=== PATIENT | female | born 1980 | race American Indian/Alaskan Native ===

== ENCOUNTER 2016-10-08 02:53 | Inpatient (IN) | payer BC ==
[2016-10-08 03:41] LABS: Hematocrit 38 % (35-47); Hemoglobin 12.9 g/dl (12.0-16.0); Mean Corpuscular HGB Conc 34 g/dl (31-36); Mean Corpuscular Hemoglobin 29 pg (27-31); Mean Corpuscular Volume 85 fL (80-97); Mean Platelet Volume 10 um3 (7.4-10.4); Red Blood Count 4.47 10^6/ul (4.0-5.4); Red Cell Distribution Width 13 % (10.5-15); White Blood Count 15.7 10^3/ul (3.5-10.8)
[2016-10-08 03:45] LABS: Add Diff/Slide Review? Slide Review Added; Comments Flag Yes
[2016-10-08 04:32] LABS: Albumin 3.2 g/dL (3.2-5.2); BUN/Creatinine Ratio 14.9 (8-20); Calcium 8.7 mg/dL (8.6-10.3); EGFR African American 70.2 (>60); EGFR Non-African American 54.6 (>60); Globulin 2.6 g/dL (2-4); Potassium 4.1 mmol/L (3.5-5.0); Total Bilirubin 0.3 mg/dL (0.2-1.0); Total Protein 5.8 g/dL (6.4-8.9); Uric Acid 10.1 mg/dL (2.3-6.6)
[2016-10-08] MEDS ORDERED: Promethazine TAB* 25 MG PO ONE (04:57)
[2016-10-08] MEDS ORDERED: Nalbuphine* 20 MG/ML 1 ML VIAL IV ONE (05:00)
[2016-10-08] MEDS ORDERED: Nalbuphine* 20 MG/ML 1 ML VIAL ONE (05:04)
[2016-10-08] MEDS ORDERED: Promethazine TAB* 25 MG ONE (05:05)
[2016-10-08] MEDS ORDERED: OBEPIDURAL* 250 ML ONE (09:48)
[2016-10-08] MEDS ORDERED: Sodium Citrate/Citric Acid* 15 ML UDC PO PRN (10:53)
[2016-10-08] MEDS ORDERED: Phenylephrine IV* 40 MCG/ML 10 ML SYRINGE IV PUSH PRN ×2 (10:53)
[2016-10-08] MEDS ORDERED: OBEPIDURAL* 250 ML EPIDURAL SCH (11:00)
[2016-10-08] MEDS ORDERED: Oxytocin in LR* 0 UNITS/0 ML BAG IVPB ONE (18:56)
[2016-10-08] MEDS ORDERED: Glycerin ADULT SUPP PR PRN (20:49)
[2016-10-08] MEDS ORDERED: Acetaminophen TAB* 325 MG PO PRN (20:49)
[2016-10-08] MEDS ORDERED: Simethicone CHEW TAB* 80 MG PO SCH (21:00)
[2016-10-08] MEDS: Docusate CAP* 100 MG PO SCH (21:53)
[2016-10-08] MEDS: Ibuprofen TAB* 600 MG PO PRN (21:53)
[2016-10-08] MEDS: Witch Hazel PAD* JAR TOPICAL PRN (21:53)
[2016-10-08] MEDS: Dibucaine 1% 28.35 GM TUBE PR PRN (21:54)
[2016-10-09] MEDS: Ibuprofen TAB* 600 MG PO PRN ×4 (05:17→23:55)
[2016-10-09 07:25] LABS: Hematocrit 34 % (35-47); Hemoglobin 11.6 g/dl (12.0-16.0); Mean Corpuscular HGB Conc 34 g/dl (31-36); Mean Corpuscular Hemoglobin 29 pg (27-31); Mean Corpuscular Volume 85 fL (80-97); Mean Platelet Volume 10 um3 (7.4-10.4); Red Blood Count 3.96 10^6/ul (4.0-5.4); Red Cell Distribution Width 13 % (10.5-15); White Blood Count 23.8 10^3/ul (3.5-10.8)
[2016-10-09] MEDS ORDERED: Ferrous Gluconate TAB* 324 MG TAB PO SCH (09:00)
[2016-10-09] MEDS: Docusate CAP* 100 MG PO SCH ×2 (09:09→21:08)
[2016-10-09] MEDS: oxyCODONE/Acetamin 5/325 MG* TAB PO PRN ×2 (11:47→17:27)
[2016-10-09] MEDS ORDERED: Labetalol TAB* 200 MG ONE (12:28)
--- NOTE | 2016-10-09 12:39 | PN ---
Progress Note - Progress Note SOAP: Subjective: Paged by RN for elevated BP 185/103 Pt denies DOZIER. No visual changes. No RUQ pain. Some cramping discomfort with nursing but coping. Family and visitors at bedside. In labor pt had a uric acid of 10.1 and an elevated creatinine of 1.14. AST/ALT/ BUN WNL. Platelets in labor 148 (105 ) [] Objective: []BP 185/103 (overnight running 140s/80-90's) T 97.8 HR 62 Breasts: Soft, atraumatic Abd: FF U down 1, non-tender. Moderate rubra flow. Negative RUQ pain to palpation. Negative CVAT Perineum: Mild edema, scant bruising, suture intact Assessment: []Elevated BP suspect related to mild pre-eclampsia in labor Plan: []Pt given Percocet x 1 and plan to re-check BP in 30 minutes. 30 minute repeat of BP 186/99. In consultation with Dr. Beaver plan 200mg Labetalol PO and re-check BP 30 min after administration. RN to page CNM with repeat BP.
[2016-10-09] MEDS ORDERED: Labetalol TAB* 200 MG PO ONE (13:00)
[2016-10-10] MEDS: Docusate CAP* 100 MG PO SCH ×3 (02:24→14:39)
[2016-10-10] MEDS: Ibuprofen TAB* 600 MG PO PRN ×3 (06:14→17:46)
[2016-10-10] MEDS: oxyCODONE/Acetamin 5/325 MG* TAB PO PRN ×2 (06:15→18:10)
[2016-10-10 08:14] VITALS: BP 137/86
[2016-10-10] MEDS: Dibucaine 1% 28.35 GM TUBE PR PRN (08:51)
[2016-10-10] MEDS ORDERED: Labetalol TAB* 200 MG PO SCH (09:00)
[2016-10-10] MEDS: Witch Hazel PAD* JAR TOPICAL PRN (18:16)
== END 2016-10-10 18:55 | disposition home or self-care (01) | DRG 542 ==
LOC: MCHOBOUT 02:53 → MCHOB 03:14
PROVIDERS: ADMIT Midwife; ATTEND Midwife
PROC: 10E0XZZ Delivery of Products of Conception, External Approach (ICD-10-PCS; principal; 2016-10-08)
PROC: 0DQR0ZZ Repair Anal Sphincter, Open Approach (ICD-10-PCS; 2016-10-08)
DX: O99.824 Streptococcus B carrier state complicating childbirth (principal); F32.9 Major depressive disorder, single episode, unspecified; O14.04 Mild to moderate pre-eclampsia, complicating childbirth; O70.20 Third degree perineal laceration during delivery, unspecified; O99.344 Other mental disorders complicating childbirth; Z3A.39 39 weeks gestation of pregnancy; Z37.0 Single live birth
CPT/HCPCS: 36415; 80053; 84550; 85025; 86850; 86900; 86901; A9270-GY; J2300

== ENCOUNTER 2016-10-17 12:47 | Emergency (ER) | payer BC ==
[2016-10-17 15:26] VITALS: BP 139/89
--- NOTE | 2016-10-17 15:30 | ED ---
Hieu Crockett Alok, scribed for Rosy Santos MD on 10/17/16 at 1349 . GI/ HPI - HPI Summary HPI Summary: 36F presents to the ED with hemorrhoidal pain. Pt is 1 week post GPA = 1 , 1, 0. Pt had a vaginal delivery. Pt has been taking 800 mg ibuprofen and 3 g Tylenol to manage pain, last taken three hours ago. PMHx includes post HTN. Pt drinks ETOH occasionally. - History of Current Complaint Chief Complaint: EDGeneral Stated Complaint: HEMORRHIOD PAIN Hx Obtained From: Patient Onset/Duration: Atraumatic, Still Present Timing: Constant Severity: Moderate Current Severity: Moderate Pain Intensity: 4 Associated Signs and Symptoms: Positive: Negative Aggravating Factor(s): Nothing Alleviating Factor(s): OTC Analgesics - tylenol, ibuprofen - Allergy/Home Medications Allergies/Adverse Reactions: Allergies Allergy/AdvReac Type Severity Reaction Status Date / Time Prednisone Allergy Severe Altered Verified 04/17/14 12:22 Mental Status PMH/Surg Hx/FS Hx/Imm Hx Cardiovascular History: Denies: Hx Hypertension, Hx Pacemaker/ICD Sensory History: Denies: Hx Hearing Aid Psychiatric History: Reports: Hx Anxiety, Hx Depression Denies: Hx Panic Disorder Infectious Disease History: No Infectious Disease History: Denies: Traveled Outside the [place] in Last 30 Days - Family History Known Family History: Positive: Cardiac Disease - Social History Occupation: Employed Full-time Lives: With Family Alcohol Use: None Substance Use Type: Reports: None Smoking Status (MU): Never Smoked Tobacco Review of Systems Negative: Fever Positive: Other - hemorrhoid All Other Systems Reviewed And Are Negative: Yes Physical Exam Triage Information Reviewed: Yes Vital Signs On Initial Exam: Initial Vitals Temp Pulse Resp BP Pulse Ox 98.5 F 81 20 153/104 99 10/17/16 13:00 10/17/16 13:00 10/17/16 13:00 10/17/16 13:00 10/17/16 13:00 Vital Signs Reviewed: Yes Appearance: Positive: Well-Appearing, No Pain Distress Skin: Positive: Warm, Skin Color Reflects Adequate Perfusion, Dry, Other - 2 cm hemorrhoid mostly pinkish with one bluish spot Eyes: Positive: EOMI, MELECIO ENT: Positive: Pharynx normal, TMs normal Neck: Positive: Supple, Nontender Respiratory/Lung Sounds: Positive: Clear to Auscultation, Breath Sounds Present. Negative: Rales, Rhonchi, Wheezes Cardiovascular: Positive: RRR, Other - No Gallop. Negative: Murmur, Rub Abdomen Description: Positive: Nontender, Soft, Other: - No rebound. Negative: Distended, Guarding Bowel Sounds: Positive: Present Musculoskeletal: Positive: Strength/ROM Intact. Negative: Edema Left, Edema Right Neurological: Positive: Sensory/Motor Intact, Alert, Oriented to Person Place, Time, CN Intact II-III Psychiatric: Positive: Affect/Mood Appropriate Procedures - Incision and Drainage Site: Slight thrombus incision Anesthesia: Topical Instrument(s): Scalpel Diagnostics - Vital Signs Vital Signs Temp Pulse Resp BP Pulse Ox 10/17/16 13:03 97.1 F 73 20 153/104 100 10/17/16 13:00 98.5 F 81 20 153/104 99 - Laboratory Lab Statement: Any lab studies that have been ordered have been reviewed, and results considered in the medical decision making process. GIGU Course/Dx - Course Course Of Treatment: very pleasant 36yo female 1 week post with painful thrombosed hemorrhoid. Area anesthesized with marcaine and very small incision made over thrombosed area to relieve some pressure. lidocaine jelly prescribed and pt will folowup with surgery - Diagnoses Provider Diagnoses: Thrombosed external hemorrhoid Discharge - Discharge Plan Condition: Stable Disposition: HOME Prescriptions: Lidocaine 2% JELLY* 1 applic TOPICAL TID PRN #1 tube PRN Reason: Pain Patient Education Materials: Thrombosed Hemorrhoid (ED) Referrals: Viktor Donovan CURRICULUM DEVELOPMENT SPECIALIST [Primary Care Provider] - Abundio Morgan MD [Medical Doctor] - Additional Instructions: Please follow up with Dr. Morgan for surgery The documentation as recorded by the Hieu mancilla Alok accurately reflects the service I personally performed and the decisions made by me, Rosy Santos MD.
== END 2016-10-17 15:23 | disposition home or self-care (01) ==
LOC: ED 12:47
DX: K64.5 Perianal venous thrombosis (principal)
CPT/HCPCS: 10060; 99282

== ENCOUNTER 2017-01-25 14:58 | Emergency (ER) | payer BC ==
[2017-01-25] MEDS ORDERED: NS 0.9% 1000 ML* 2,000 ML IV ONE (15:28)
[2017-01-25 15:49] LABS: Hematocrit 41 % (35-47); Hemoglobin 13.9 g/dl (12.0-16.0); Mean Corpuscular HGB Conc 34 g/dl (31-36); Mean Corpuscular Hemoglobin 29 pg (27-31); Mean Corpuscular Volume 84 fL (80-97); Mean Platelet Volume 8 um3 (7.4-10.4); Red Blood Count 4.88 10^6/ul (4.0-5.4); Red Cell Distribution Width 12 % (10.5-15); White Blood Count 6.1 10^3/ul (3.5-10.8)
[2017-01-25 15:50] LABS: Comments Flag Yes
[2017-01-25 16:05] LABS: Albumin 4.3 g/dL (3.2-5.2); BUN/Creatinine Ratio 8.3 (8-20); C Reactive Protein 1.53 mg/L (< 5.00); Calcium 9.5 mg/dL (8.6-10.3); EGFR African American 74.7 (>60); EGFR Non-African American 58.1 (>60); Globulin 2.8 g/dL (2-4); Potassium 3.6 mmol/L (3.5-5.0); Total Bilirubin 0.5 mg/dL (0.2-1.0); Total Protein 7.1 g/dL (6.4-8.9)
--- NOTE | 2017-01-25 16:13 | ED ---
Bayron Crockett Rebecca, scribed for Jus Schuler MD on 01/25/17 at 1522 . Abdominal Pain/Female - HPI Summary HPI Summary: Pt is a 36 y/o F who presents to ED c/o abd pain. 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 Pain is diffuse and currently mild, ranked 3/ 10. Sx aggravated and alleviated by nothing. She additionally c/o N/V/D and dizziness. notes one episode of vomiting 1.5 weeks aog that lasted for ~12 hours and resolved spontaneously. Pt cites vomiting 3 nights ago, 3-4 hours after eating scallops and has been unable to tolerate PO intake since then. Currently, nausea is mild. Last episode of diarrhea was at about 11 or 1130 today, described as dark but not black. Denies fever, chills, cough, back pain and edema. No recent sick contact. She is concerned about dehydration and is currently breast feeding. - History of Current Complaint Chief Complaint: EDNauseaVomitDiarrh Stated Complaint: VOMITING Time Seen by Provider: 01/25/17 15:12 Hx Obtained From: Patient Hx Last Menstrual Period: 3 weeks ago Onset/Duration: Lasting Hours, Still Present Timing: Constant Severity Currently: Mild Pain Intensity: 3 Pain Scale Used: 0-10 Numeric Location: Diffuse Character: Dull Aggravating Factor(s): Nothing Alleviating Factor(s): Nothing Associated Signs and Symptoms: Positive: Dizzy, Nausea, Vomiting, Diarrhea. Negative: Fever Allergies/Adverse Reactions: Allergies Allergy/AdvReac Type Severity Reaction Status Date / Time Prednisone Allergy Severe Altered Verified 04/17/14 12:22 Mental Status PMH/Surg Hx/FS Hx/Imm Hx Cardiovascular History: Denies: Hx Hypertension, Hx Pacemaker/ICD Sensory History: Denies: Hx Hearing Aid Psychiatric History: Reports: Hx Anxiety, Hx Depression Denies: Hx Panic Disorder Infectious Disease History: No Infectious Disease History: Denies: Traveled Outside the [place] in Last 30 Days - Family History Known Family History: Positive: Cardiac Disease - Social History Alcohol Use: None Substance Use Type: Reports: None Smoking Status (MU): Never Smoked Tobacco Review of Systems Negative: Fever, Chills Negative: Cough Positive: Abdominal Pain - mild, Vomiting, Diarrhea, Nausea Positive: Other - NEGATIVE: back pain. Negative: Edema Neurological: Other - Dizziness All Other Systems Reviewed And Are Negative: Yes Physical Exam - Summary Physical Exam Summary: The patient is well-nourished in no acute distress and in no acute pain. The skin is warm and dry and skin color reflects adequate perfusion. She is nontoxic appearing. HEENT: The head is normocephalic and atraumatic. The pupils are equal and reactive. The conjunctivae are clear and without drainage. Nares are patent and without drainage. Mouth reveals moist mucous membranes and the throat is without erythema and exudate. The external ears are intact. The ear canals are patent and without drainage. The tympanic membranes are intact. Neck is supple with full range of motion and non-tender. There are no carotid bruits. There is no neck vein distension. Respiratory: Chest is non-tender. Lungs are clear to auscultation and breath sounds are symmetrical and equal. Cardiovascular: Hear is regular rate and rhythm. There is no murmur or rub auscultated. Pulses are symmetrical and equal. Abdomen: The abdomen is soft with some epigastric and RUQ pain. She exhibits no guarding and no rebound. There are normal bowel sounds heard in all four quadrants and there is no organomegaly palpated. Musculoskeletal: There is no back pain noted. Extremities are non-tender with full range of motion. There is good capillary refill and good skin turgor. Neurological: Patient is alert and oriented to person, place and time. Psychiatric: The patient has an appropriate affect and does not exhibit any anxiety or depression. Triage Information Reviewed: Yes Vital Signs On Initial Exam: Initial Vitals Temp Pulse Resp BP Pulse Ox 98.1 F 76 17 137/94 100 01/25/17 15:03 01/25/17 15:03 01/25/17 15:03 01/25/17 15:03 01/25/17 15:03 Vital Signs Reviewed: Yes Diagnostics - Vital Signs Vital Signs Temp Pulse Resp BP Pulse Ox 01/25/17 15:03 98.1 F 76 17 137/94 100 - Laboratory Lab Results: Lab Results 01/25/17 01/25/17 01/25/17 Range/Units 15:35 15:35 15:35 WBC 6.1 (3.5-10.8) 10^3/ul RBC 4.88 (4.0-5.4) 10^6/ul Hgb 13.9 (12.0-16.0) g/dl Hct 41 (35-47) % MCV 84 (80-97) fL MCH 29 (27-31) pg MCHC 34 (31-36) g/dl RDW 12 (10.5-15) % Plt Count 211 (150-450) 10^3/ul MPV 8 (7.4-10.4) um3 Neut % (Auto) 56.6 (38-83) % Lymph % (Auto) 30.2 (25-47) % [place] % (Auto) 11.7 H (1-9) % Eos % (Auto) 1.2 (0-6) % Baso % (Auto) 0.3 (0-2) % Absolute Neuts (auto) 3.4 (1.5-7.7) 10^3/ul Absolute Lymphs (auto) 1.8 (1.0-4.8) 10^3/ul Absolute Monos (auto) 0.7 (0-0.8) 10^3/ul Absolute Eos (auto) 0.1 (0-0.6) 10^3/ul Absolute Basos (auto) 0 (0-0.2) 10^3/ul Absolute Nucleated RBC 0.01 10^3/ul Nucleated RBC % 0.2 Sodium 137 (133-145) mmol/L Potassium 3.6 (3.5-5.0) mmol/L Chloride 106 (101-111) mmol/L Carbon Dioxide 24 (22-32) mmol/L Anion Gap 7 (2-11) mmol/L BUN 9 (6-24) mg/dL Creatinine 1.08 H (0.51-0.95) mg/dL Est GFR ( Amer) 74.7 (>60) Est GFR (Non-Af Amer) 58.1 (>60) BUN/Creatinine Ratio 8.3 (8-20) Glucose 77 (70-100) mg/dL Lactic Acid 0.6 (0.5-2.0) mmol/L Calcium 9.5 (8.6-10.3) mg/dL Total Bilirubin 0.50 (0.2-1.0) mg/dL AST 15 (13-39) U/L ALT 11 (7-52) U/L Alkaline Phosphatase 76 (34-104) U/L C-Reactive Protein 1.53 (< 5.00) mg/L Total Protein 7.1 (6.4-8.9) g/dL Albumin 4.3 (3.2-5.2) g/dL Globulin 2.8 (2-4) g/dL Albumin/Globulin Ratio 1.5 (1-3) Amylase 50 (29-103) U/L Lipase 13 (11.0-82.0) U/L Result Diagrams: 01/25/17 15:35 01/25/17 15:35 Lab Statement: Any lab studies that have been ordered have been reviewed, and results considered in the medical decision making process. Abdominal Pain Fem Course/Dx - Course Course Of Treatment: Pt is a 36 y/o F who presents to ED c/o abd pain. 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 Pain is diffuse and currently mild, ranked 3/10. Sx aggravated and alleviated by nothing. She additionally c/o N/V/D and dizziness. notes one episode of vomiting 1.5 weeks aog that lasted for ~12 hours and resolved spontaneously. Pt cites vomiting 3 nights ago, 3-4 hours after eating scallops and has been unable to tolerate PO intake since then. Currently, nausea is mild. Last episode of diarrhea was at about 11 or 1130 today, described as dark but not black. Denies fever, chills, cough, back pain and edema. No recent sick contact. She is concerned about dehydration and is currently breast feeding. Pt marleny signed out, pending disposition, awaiting stool culture. - Diagnoses Differential Diagnosis: Positive: Gall Bladder Disease, Other - dehydration. enteritis, gastritis Provider Diagnoses: Dehydration Discharge - Discharge Plan Condition: Stable Disposition: OTHER Discharge Disposition Comment: Pt will be signed out, pending disposition, awaiting stool culture Referrals: Viktor Donovan, EVALUATION ENGINEER [Primary Care Provider] - The documentation as recorded by the Bayron mancilla Rebecca accurately reflects the service I personally performed and the decisions made by me, Jus Schuler MD.
[2017-01-25 18:33] VITALS: BP 132/90
== END 2017-01-25 18:31 | disposition home or self-care (01) ==
LOC: ED 14:58
DX: R10.9 Unspecified abdominal pain (principal); R42 Dizziness and giddiness; R11.2 Nausea with vomiting, unspecified; R19.7 Diarrhea, unspecified; E86.0 Dehydration
CPT/HCPCS: 36415; 80053; 82150; 83605; 83690; 85025; 86140; 96360; 99282

== ENCOUNTER 2017-01-27 08:08 | Emergency (ER) | payer BC ==
[2017-01-27] MEDS ORDERED: Ondansetron INJ* 2 MG/ML VIAL IV ONE (09:28)
[2017-01-27] MEDS ORDERED: Morphine INJ* 4 MG/ML 1 ML CARPUJECT IV ONE (09:28)
[2017-01-27] MEDS ORDERED: NS 0.9% 1000 ML* 2,000 ML IV ONE (09:57)
[2017-01-27 10:02] LABS: Hematocrit 42 % (35-47); Hemoglobin 14.2 g/dl (12.0-16.0); Mean Corpuscular HGB Conc 34 g/dl (31-36); Mean Corpuscular Hemoglobin 29 pg (27-31); Mean Corpuscular Volume 84 fL (80-97); Mean Platelet Volume 8 um3 (7.4-10.4); Red Blood Count 4.97 10^6/ul (4.0-5.4); Red Cell Distribution Width 12 % (10.5-15); White Blood Count 5.7 10^3/ul (3.5-10.8)
[2017-01-27 10:24] LABS: ALT 12 U/L (7-52); Albumin 4.9 g/dL (3.2-5.2); Alkaline Phosphatase 72 U/L (34-104); Anion Gap 4 mmol/L (2-11); BUN/Creatinine Ratio 8.3 (8-20); Blood Urea Nitrogen 9 mg/dL (6-24); C Reactive Protein < 1.00 mg/L (< 5.00); CO2 Carbon Dioxide 27 mmol/L (22-32); Calcium 9.3 mg/dL (8.6-10.3); Chloride 108 mmol/L (101-111); EGFR African American 74.7 (>60); EGFR Non-African American 58.1 (>60); Glucose 101 mg/dL (70-100); Lipase 16 U/L (11.0-82.0); Potassium 3.8 mmol/L (3.5-5.0); Sodium 139 mmol/L (133-145); Total Protein 6.9 g/dL (6.4-8.9)
[2017-01-27 10:35] LABS: Urine Bacteria Absent (Absent); Urine Bilirubin Negative (Negative); Urine Glucose Negative (Negative); Urine Nitrite Negative (Negative)
[2017-01-27] MEDS ORDERED: Iodixanol* (CONTRAST) 320 MG/ML 100 ML SDV IV ONE (10:47)
[2017-01-27 11:23] LABS: AST 16 U/L (13-39)
--- NOTE | 2017-01-27 12:35 | RAD ---
CLINICAL HISTORY: Severe diarrhea, left upper quadrant pain, left lower quadrant pain COMPARISON: None TECHNIQUE: Multiple contiguous axial CT scans were obtained of the abdomen and pelvis after the administration of intravenous contrast. Coronal and sagittal multiplanar reformations are submitted for review. Oral contrast was administered. Delayed images were obtained through the abdomen and pelvis. FINDINGS: LUNG BASES: The lung bases are clear. LIVER: There is a low-attenuation lesion of the right lobe of liver that is too small to definitively characterize measuring 0.5 cm in size, but most likely represents a small cyst versus hemangioma. The liver measures up to 18.7 cm in long axis. BILE DUCTS: There is no intrahepatic or extrahepatic biliary dilatation. GALLBLADDER: The gallbladder is normal, without pericholecystic inflammatory change. PANCREAS: The pancreas is normal, without mass or ductal dilatation. SPLEEN: The spleen measures up to 13.3 cm in long axis. UPPER GI TRACT: Evaluation of the gastrointestinal tract is limited by incomplete gastric distention. The upper GI tract is unremarkable. SMALL BOWEL AND MESENTERY: The small bowel is normal in contour, course, and caliber. There is no obstruction or dilatation. COLON: The colon is normal in contour, course, caliber. There is no pericolonic inflammatory change. ADRENALS: Normal bilaterally. KIDNEYS: The kidneys are normal in shape, size, contour, and axis. There is no hydronephrosis or nephrolithiasis. BLADDER: The bladder is smooth in contour. PELVIC ORGANS: The uterus and adnexa are grossly normal for technique. AORTA: The aorta is normal. IVC: Unremarkable LYMPH NODES: There is no lymphadenopathy by size criteria. ABDOMINAL WALL: There is no evidence for abdominal wall hernia. BONES AND SOFT TISSUES: Unremarkable OTHER: There is a small amount of free fluid within the pelvis. This may be physiologic within a reproductive age female. IMPRESSION: 1. BORDERLINE HEPATOSPLENOMEGALY. 2. NO OBSTRUCTION. 3. SMALL AMOUNT OF FREE FLUID WITHIN THE PELVIS. THIS MAY BE PHYSIOLOGIC WITHIN A REPRODUCTIVE AGE FEMALE.
[2017-01-27 14:23] VITALS: BP 116/71
--- NOTE | 2017-01-27 19:13 | ED ---
Sherry Crockett SooYoung, scribed for Jus Schuler MD on 01/27/17 at 0922 . GI/ HPI - HPI Summary HPI Summary: A 36 y/o F presents to ED with c/o diffuse abd pain described as cramping ongoing for five days, and worsening last night. Associated sx: nausea, diarrhea , unable to eat or drink due to the nausea/diarrhea. Denies fever, chills, melena; and back pain is per baseline. Last seen in ED two days ago for similar n/v/d. Pt states she's lost 8 lbs over past five days. Prev episodes of vomiting for 12 hours last week. Pt is and breast-feeding. Denies recent travel. - History of Current Complaint Chief Complaint: EDNauseaVomitDiarrh Time Seen by Provider: 01/27/17 09:13 Stated Complaint: DIARRHEA Hx Obtained From: Patient, Family/Instrumentation Manager - present Hx Last Menstrual Period: 3 weeks ago Onset/Duration: Started Days Ago, Still Present Timing: Constant Severity: Moderate Current Severity: Moderate Pain Intensity: 3 - out of 10 Location of Pain: Diffuse Associated Signs and Symptoms: Positive: Nausea, Diarrhea, Other: - decreased oral intake. Negative: Blood-Streaked Stool, Bright Red Blood w/Stool, Blood w/ Stool, Fever, Chills - Allergy/Home Medications Allergies/Adverse Reactions: Allergies Allergy/AdvReac Type Severity Reaction Status Date / Time Prednisone Allergy Severe Altered Verified 01/27/17 08:14 Mental Status PMH/Surg Hx/FS Hx/Imm Hx Previously Healthy: Yes Cardiovascular History: Denies: Hx Hypertension, Hx Pacemaker/ICD Sensory History: Denies: Hx Legally Blind, Hx Hearing Aid Opthamlomology History: Denies: Hx Legally Blind Psychiatric History: Reports: Hx Anxiety, Hx Depression Denies: Hx Panic Disorder Infectious Disease History: Denies: Traveled Outside the [place] in Last 30 Days - Family History Known Family History: Positive: Cardiac Disease - Social History Occupation: Employed Full-time Lives: With Family Alcohol Use: None Hx Substance Use: No Substance Use Type: Reports: None Hx Tobacco Use: No Smoking Status (MU): Never Smoked Tobacco Review of Systems Negative: Fever, Chills Positive: Abdominal Pain, Diarrhea, Nausea. Negative: Other - pos: decreased oral intake; neg: melena All Other Systems Reviewed And Are Negative: Yes Physical Exam - Summary Physical Exam Summary: The patient is well-nourished in no acute distress and in no acute pain. The skin is warm and dry and skin color reflects adequate perfusion. HEENT: The head is normocephalic and atraumatic. The pupils are equal and reactive. The conjunctivae are clear and without drainage. Nares are patent and without drainage. Mouth reveals dry mucous membranes and the throat is without erythema and exudate. The external ears are intact. The ear canals are patent and without drainage. The tympanic membranes are intact. Neck is supple with full range of motion and non-tender. There are no carotid bruits. There is no neck vein distension. Respiratory: Chest is non-tender. Lungs are clear to auscultation and breath sounds are symmetrical and equal. Cardiovascular: Heart is regular rate and rhythm. There is no murmur or rub auscultated. There is no peripheral edema and pulses are symmetrical and equal. Abdomen: The abdomen has tenderness at LLQ and LUQ. There is no CVA tenderness. There are normal bowel sounds heard in all four quadrants and there is no organomegaly palpated. Musculoskeletal: There is no back pain noted. Extremities are non-tender with full range of motion. There is good capillary refill. There is no peripheral edema or calf tenderness elicited. Neurological: Patient is alert and oriented to person, place and time. The patient has symmetrical motor strength in all four extremities. Cranial nerves are grossly intact. Deep tendon reflexes are symmetrical and equal in all four extremities. Psychiatric: The patient has an appropriate affect and does not exhibit any anxiety or depression. Triage Information Reviewed: Yes Vital Signs On Initial Exam: Initial Vitals Temp Pulse Resp BP Pulse Ox 98.1 F 68 20 122/83 100 01/27/17 08:09 01/27/17 08:09 01/27/17 08:09 01/27/17 08:09 01/27/17 08:09 Vital Signs Reviewed: Yes Diagnostics - Vital Signs Vital Signs Temp Pulse Resp BP Pulse Ox 01/27/17 09:02 98.8 F 73 15 122/83 99 01/27/17 08:09 98.1 F 68 20 122/83 100 - Laboratory Lab Results: Lab Results 09/14/17 09/14/17 09/14/17 Range/Units 09:30 09:30 09:30 WBC 5.7 (3.5-10.8) 10^3/ul RBC 4.97 (4.0-5.4) 10^6/ul Hgb 14.2 (12.0-16.0) g/dl Hct 42 (35-47) % MCV 84 (80-97) fL MCH 29 (27-31) pg MCHC 34 (31-36) g/dl RDW 12 (10.5-15) % Plt Count 197 (150-450) 10^3/ul MPV 8 (7.4-10.4) um3 Neut % (Auto) 62.6 (38-83) % Lymph % (Auto) 27.1 (25-47) % Petroleum % (Auto) 8.6 (1-9) % Eos % (Auto) 1.0 (0-6) % Baso % (Auto) 0.7 (0-2) % Absolute Neuts (auto) 3.6 (1.5-7.7) 10^3/ul Absolute Lymphs (auto) 1.6 (1.0-4.8) 10^3/ul Absolute Monos (auto) 0.5 (0-0.8) 10^3/ul Absolute Eos (auto) 0.1 (0-0.6) 10^3/ul Absolute Basos (auto) 0 (0-0.2) 10^3/ul Absolute Nucleated RBC 0.01 10^3/ul Nucleated RBC % 0.1 Sodium 139 (133-145) mmol/L Potassium 3.8 (3.5-5.0) mmol/L Chloride 108 (101-111) mmol/L Carbon Dioxide 27 (22-32) mmol/L Anion Gap 4 (2-11) mmol/L BUN 9 (6-24) mg/dL Creatinine 1.08 H (0.51-0.95) mg/dL Est GFR ( Amer) 74.7 (>60) Est GFR (Non-Af Amer) 58.1 (>60) BUN/Creatinine Ratio 8.3 (8-20) Glucose 101 H (70-100) mg/dL Lactic Acid 0.6 (0.5-2.0) mmol/L Calcium 9.3 (8.6-10.3) mg/dL Total Bilirubin 0.70 (0.2-1.0) mg/dL AST 16 (13-39) U/L ALT 12 (7-52) U/L Alkaline Phosphatase 72 (34-104) U/L C-Reactive Protein < 1.00 (< 5.00) mg/L Total Protein 6.9 (6.4-8.9) g/dL Albumin 4.9 (3.2-5.2) g/dL Globulin 2.0 (2-4) g/dL Albumin/Globulin Ratio 2.5 (1-3) Lipase 16 (11.0-82.0) U/L Beta HCG, Quant 0.91 mIU/mL Urine Color Urine Appearance Urine pH (5-9) Ur Specific Mohler (1.010-1.030) Urine Protein (Negative) Urine Ketones (Negative) Urine Blood (Negative) Urine Nitrate (Negative) Urine Bilirubin (Negative) Urine Urobilinogen (Negative) Ur Leukocyte Esterase (Negative) Urine WBC (Auto) (Absent) Urine RBC (Auto) (Absent) Ur Squamous Epith Cells (Absent) Urine Bacteria (Absent) Urine Glucose (Negative) 01/27/17 Range/Units 10:00 WBC (3.5-10.8) 10^3/ul RBC (4.0-5.4) 10^6/ul Hgb (12.0-16.0) g/dl Hct (35-47) % MCV (80-97) fL MCH (27-31) pg MCHC (31-36) g/dl RDW (10.5-15) % Plt Count (150-450) 10^3/ul MPV (7.4-10.4) um3 Neut % (Auto) (38-83) % Lymph % (Auto) (25-47) % Petroleum % (Auto) (1-9) % Eos % (Auto) (0-6) % Baso % (Auto) (0-2) % Absolute Neuts (auto) (1.5-7.7) 10^3/ul Absolute Lymphs (auto) (1.0-4.8) 10^3/ul Absolute Monos (auto) (0-0.8) 10^3/ul Absolute Eos (auto) (0-0.6) 10^3/ul Absolute Basos (auto) (0-0.2) 10^3/ul Absolute Nucleated RBC 10^3/ul Nucleated RBC % Sodium (133-145) mmol/L Potassium (3.5-5.0) mmol/L Chloride (101-111) mmol/L Carbon Dioxide (22-32) mmol/L Anion Gap (2-11) mmol/L BUN (6-24) mg/dL Creatinine (0.51-0.95) mg/dL Est GFR ( Amer) (>60) Est GFR (Non-Af Amer) (>60) BUN/Creatinine Ratio (8-20) Glucose (70-100) mg/dL Lactic Acid (0.5-2.0) mmol/L Calcium (8.6-10.3) mg/dL Total Bilirubin (0.2-1.0) mg/dL AST (13-39) U/L ALT (7-52) U/L Alkaline Phosphatase (34-104) U/L C-Reactive Protein (< 5.00) mg/L Total Protein (6.4-8.9) g/dL Albumin (3.2-5.2) g/dL Globulin (2-4) g/dL Albumin/Globulin Ratio (1-3) Lipase (11.0-82.0) U/L Beta HCG, Quant mIU/mL Urine Color Yellow Urine Appearance Clear Urine pH 6.0 (5-9) Ur Specific Mohler 1.010 (1.010-1.030) Urine Protein Negative (Negative) Urine Ketones Negative (Negative) Urine Blood Negative (Negative) Urine Nitrate Negative (Negative) Urine Bilirubin Negative (Negative) Urine Urobilinogen Negative (Negative) Ur Leukocyte Esterase Trace H (Negative) Urine WBC (Auto) Trace(0-5/hpf) (Absent) Urine RBC (Auto) Trace(0-2/hpf) (Absent) Ur Squamous Epith Cells Present H (Absent) Urine Bacteria Absent (Absent) Urine Glucose Negative (Negative) Result Diagrams: 01/27/17 09:30 01/27/17 09:30 Lab Statement: Any lab studies that have been ordered have been reviewed, and results considered in the medical decision making process. - CT ABD/PEL CT CT Interpretation: Positive (See Comments) - IMPRESSION: 1. BORDERLINE HEPATOSPLENOMEGALY. 2. NO OBSTRUCTION. 3. SMALL AMOUNT OF FREE FLUID WITHIN THE PELVIS. THIS MAY BE PHYSIOLOGIC WITHIN A REPRODUCTIVE AGE FEMALE. ED physician has reviewed this radiology report and agrees CT Interpretation Completed By: Radiologist Re-Evaluation - Re-Evaluation 1 Re-Evaluation Time: 13:27 Change: Improved Comment: Discussing results with pt and . Pt feeling better would like to go home. GIGU Course/Dx - Course Course Of Treatment: A 36 y/o F presents to ED with c/o diffuse abd pain described as cramping ongoing for five days, and worsening last night. Associated sx: nausea, diarrhea, unable to eat or drink due to nausea/diarrhea. Denies fever, chills, melena; and back pain is per baseline. Last seen in ED two days ago for similar n/v/d. Pt states she's lost 8 lbs over past five days. Prev episodes of vomiting for 12 hours last week. Pt is and breast- feeding. Denies recent travel. Bloodwork is without significant abnormality. UA is negative for UTI. ABD/PEL CT shows "IMPRESSION: 1. BORDERLINE HEPATOSPLENOMEGALY. 2. NO OBSTRUCTION. 3. SMALL AMOUNT OF FREE FLUID WITHIN THE PELVIS. THIS MAY BE PHYSIOLOGIC WITHIN A REPRODUCTIVE AGE FEMALE.". Pt given fluids, morphine, Zofran in ED. Pt is feeling better at re-eval. Will D/C home with Azithromycin, recommend Immodium A-D as well. - Diagnoses Differential Diagnoses - Female: Cholelithiasis, Colitis, Diverticulitis, Gastroenteritis (Bacterial), Urinary Tract Infection, Vomiting Provider Diagnoses: Infectious diarrhea Discharge - Discharge Plan Condition: Stable Disposition: HOME Prescriptions: Azithromycin TAB* [Zithromax TAB (Z-KIRAN) 250 mg #6 tabs] 500 mg PO DAILY #6 tab Patient Education Materials: Azithromycin (By mouth), Acute Diarrhea (ED), Acute Abdominal Pain (ED) Forms: *Work Release Referrals: Viktor Donovan, [employer] [Primary Care Provider] - 3 Days Additional Instructions: Take your prescription as ordered, as well as Immodium A-D 4mg, 4x a day. Follow up with your primary care provider in 3 days. Please return to ED if you experience new or worsening symptoms. The documentation as recorded by the Sherry mancilla SooYoung accurately reflects the service I personally performed and the decisions made by me, Jus Schuler MD.
== END 2017-01-27 14:30 | disposition home or self-care (01) ==
LOC: ED 08:08
DX: R19.7 Diarrhea, unspecified (principal); R10.9 Unspecified abdominal pain; R11.10 Vomiting, unspecified
CPT/HCPCS: 36415; 74177; 80053; 81003; 81015; 83605; 83690; 84702; 85025; 86140; 87086; 96374; 96375; 99283; J2270; J2405; Q9967

== ENCOUNTER 2017-07-20 17:52 | Emergency (ER) | payer BC, OTHER ==
[2017-07-20 18:17] VITALS: BP 112/73
--- NOTE | 2017-07-20 18:24 | UC ---
Respiratory Complaint HPI - HPI Summary HPI Summary: Pt presents with productive cough and sinus pain/pressure/congestion that began one week ago. She has not been taking anything OTC for her symptoms. Says that 4 days ago she vomited once and had some loose stools that next day, but regular since. Has felt feverish, but has not taken her temperature. Denies sore throat, SOB, chest pain, abdominal pain. - History of Current Complaint Chief Complaint: UCRespiratory Stated Complaint: FLU SYMPTOMS Time Seen by Provider: 07/20/17 18:09 Hx Obtained From: Patient Hx Last Menstrual Period: gave 9 months; no recent period Onset/Duration: Gradual Onset Severity Initially: Mild Severity Currently: Mild Pain Intensity: 1 Pain Scale Used: 0-10 Numeric Character: Cough: Productive - Allergies/Home Medications Allergies/Adverse Reactions: Allergies Allergy/AdvReac Type Severity Reaction Status Date / Time prednisone Allergy Altered Verified 07/20/17 18:10 Mental Status Home Medications: Home Medications Bcp 1 tab PO DAILY 07/20/17 [History Confirmed 07/20/17] Bupropion XL* [Wellbutrin XL *] 300 mg PO DAILY 07/20/17 [History Confirmed 11/30] Elderberry Fruit and Flower [Black Elderberry 575 mg] 2 cap PO TID PRN 07/20/17 [History Confirmed 07/20/17] Pnv No.95/Ferrous Fum/Folic AC [ Vitamin & Minera 28-0.8 mg] 1 tab PO DAILY 07/20/17 [History Confirmed 07/20/17] Sertraline HCl [Zoloft] 25 mg PO QPM 07/20/17 [History Confirmed 07/20/17] PMH/Surg Hx/FS Hx/Imm Hx Previously Healthy: Yes Psychological History: Anxiety, Depression - Surgical History Surgical History: None - Family History Known Family History: Positive: Cardiac Disease - Social History Occupation: Employed Full-time Lives: With Family Alcohol Use: Occasionally Substance Use Type: None Smoking Status (MU): Never Smoked Tobacco - Immunization History Most Recent Influenza Vaccination: not flu season Most Recent Pneumonia Vaccination: not indicated Review of Systems Constitutional: Fever, Fatigue Skin: Negative Eyes: Negative ENT: Nasal Discharge, Sinus Congestion, Sinus Pain/Tenderness Respiratory: Cough Cardiovascular: Negative Gastrointestinal: Negative Neurological: Negative Psychological: Negative All Other Systems Reviewed And Are Negative: Yes Physical Exam - Summary Physical Exam Summary: GENERAL: NAD. WDWN HEENT: NC/AT. Conjunctiva clear without inflammation or discharge. TMs intact , no bulging, erythema, or edema. Nasal mucosa mildly swollen and erythematous with yellow discharge. TTP maxillary and frontal sinus. Posterior oropharynx without exudates, erythema, or tonsillar enlargement. Uvula midline. NECK: Supple without lymphadenopathy CHEST: CTAB. No r/r/w. No accessory muscle use. Breathing comfortably and in no distress. CV: RRR. Without m/r/g. Pulses intact. SKIN: No rash or erythema noted. NEURO: Alert. CN II-XII grossly intact. PSYCH: Age appropriate behavior. Triage Information Reviewed: Yes Vital Signs: Initial Vital Signs Temp 98.8 F 07/20/17 18:13 Pulse 82 07/20/17 18:13 Resp 18 07/20/17 18:13 BP 112/73 07/20/17 18:13 Pulse Ox 98 07/20/17 18:13 UC Diagnostic Evaluation - Laboratory O2 Sat by Pulse Oximetry: 98 Respiratory Course/Dx - Course Course Of Treatment: Sinusitis. Bronchitis - Differential Dx/Diagnosis Provider Diagnoses: Sinusitis. Bronchitis Discharge - Discharge Plan Condition: Stable Disposition: HOME Prescriptions: Azithromycin TAB* [Zithromax TAB (Z-KIRAN) 250 mg #6 tabs] 2 tab PO .TODAY, THEN 1 DAILY #1 kiran Patient Education Materials: Acute Bronchitis (ED) Referrals: Viktor Donovan, [employer] [Primary Care Provider] - Additional Instructions: If you develop a fever, shortness of breath, chest pain, new or worsening symptoms - please call your PCP or go to the ED.
== END 2017-07-20 19:00 | disposition home or self-care (01) ==
LOC: UCEAST 17:52
DX: J32.9 Chronic sinusitis, unspecified (principal); J40 Bronchitis, not specified as acute or chronic; F41.9 Anxiety disorder, unspecified; F32.9 Major depressive disorder, single episode, unspecified; Z88.8 Allergy status to other drugs, medicaments and biological substances
CPT/HCPCS: 87502; 99212; G0463